=== PATIENT | female | born 1985 | race Caucasian/White ===

== ENCOUNTER 2017-10-15 11:01 | Emergency (ER) | payer MEDICAID, OTHER ==
[~2017-10-15] VITALS: Ht 157.5 cm; Wt 78.0 kg
[2017-10-15 11:39] VITALS: BP 172/113
[2017-10-15 12:24] LABS: CLARITY,URINE CLEAR (Clear); COLOR,URINE YELLOW (Yellow); GLUCOSE, URINE NEGATIVE (Neg); KETONES,URINE 15 mg/dl (Neg); LEUKOCYTE ESTERASE ,URINE TRACE (Neg); NITRITES, URINE NEGATIVE (Neg); OCCULT BLOOD,URINE LARGE (Neg); PROTEIN,URINE TRACE mg/dl (Neg); UA COLLECTION TYPE CLN CATCH MIDSTREAM; URINE HCG NEGATIVE (NEG)
[2017-10-15 12:34] LABS: AMORPHOUS URATES 1+; BACTERIA,URINE FEW /HPF (Neg); MUCUS STRANDS NONE SEEN /LPF (Neg); RBC,URINE 0-2 /HPF (0-2); SQUAMOUS EPITHELIAL CELL,UR MANY /LPF (FEW); WBC,URINE 0-4 /HPF (0-4)
[2017-10-15] MEDS ORDERED: phenazopyridine 100mg tablet PO ONE (12:35)
[2017-10-15] MEDS ORDERED: PHEN-716 PO (12:35)
[2017-10-15] MEDS ORDERED: cephalexin 250mg capsule PO ONE (12:35)
[2017-10-15] MEDS ORDERED: CEPH-572 PO (12:35)
== END 2017-10-15 12:58 | disposition home or self-care (01) ==
LOC: ER 11:02
DX: N39.0 Urinary tract infection, site not specified (principal); J45.909 Unspecified asthma, uncomplicated; Z79.2 Long term (current) use of antibiotics; Z79.899 Other long term (current) drug therapy; Z59.0 Homelessness; Z56.0 Unemployment, unspecified
CPT/HCPCS: 81001; 81025; 99283

== ENCOUNTER 2019-04-07 11:27 | Emergency (ER) | payer MEDICAID ==
[~2019-04-07] VITALS: Ht 160 cm; Wt 93.0 kg
[~2019-04-07 11:27] MED LIST: PHEN-716 PO
[2019-04-07] MEDS ORDERED: ipratropium/albuterol 3ml nebule NEB ONE (12:35)
[2019-04-07] MEDS ORDERED: methylPREDNISolone sod succ 125mg/2ml vial IM ONE (12:35)
[2019-04-07] MEDS ORDERED: albuterol 2.5 MG/3 ML nebule CONTNEB PRN (13:30)
[2019-04-07] MEDS ORDERED: LORazepam 2 mg/ml vial IM ONE (13:40)
[2019-04-07] MEDS ORDERED: PRED10TA23 PO (14:56)
[2019-04-07] MEDS ORDERED: BUDE10.22 INH (14:56)
[2019-04-07] MEDS ORDERED: AZIT-21 PO (14:56)
[2019-04-07 15:03] VITALS: BP 176/97
== END 2019-04-07 15:04 | disposition home or self-care (01) ==
LOC: ER 11:28
DX: J45.998 Other asthma (principal); J20.9 Acute bronchitis, unspecified; Z59.0 Homelessness; Z56.0 Unemployment, unspecified; Z88.6 Allergy status to analgesic agent
CPT/HCPCS: 71046; 94640; 94644; 94760; 96372; 99285; J2060; J2930

== ENCOUNTER → 2021-01-15 | Emergency (ER) | payer MEDICAID ==
[~2021-01-15] VITALS: Ht 160 cm; Wt 88.6 kg
[~2021-01-15] MED LIST changes: +BUDE10.22 INH; +DICL100G30 TOP; +TRAM50TA2 PO; +traMADol 50MG tablet PO ONE
[2021-01-15 20:11] VITALS: BP 192/134
--- NOTE | 2021-01-15 22:50 | NUR ---
pt left prior to dc paperwork, did not want new rx, provider aware
== END | disposition home or self-care (01) ==
LOC: ER 20:04
DX: R68.84 Jaw pain (principal); J45.909 Unspecified asthma, uncomplicated; F17.200 Nicotine dependence, unspecified, uncomplicated; Z72.89 Other problems related to lifestyle; Z56.0 Unemployment, unspecified; Z88.6 Allergy status to analgesic agent; Z88.8 Allergy status to other drugs, medicaments and biological substances; Z79.899 Other long term (current) drug therapy
CPT/HCPCS: 93005; 99283

== ENCOUNTER 2021-07-18 10:09 | Emergency (ER) | payer MEDICAID ==
[~2021-07-18] VITALS: Ht 160 cm; Wt 100.6 kg
[~2021-07-18 10:09] MED LIST changes: -TRAM50TA2 PO; -traMADol 50MG tablet PO ONE
--- NOTE | 2021-07-18 12:27 | NUR ---
PATIENT STATED THAT SHE DID NOT WANT PRESCRIPTION TO BE SENT TO THE PHARMACY FOR PAIN STATING "I DONT NEED IT, I DIDNT COME HERE FOR PAIN MEDICATION".
--- NOTE | 2021-07-18 12:30 | NUR ---
PATIENT LEFT AMA. PROVIDER EDUCATED PATIENT ABOUT THE RISKS OF LEAVING AMA BUT STATED THAT SHE WAS READY TO LEAVE.
[2021-07-18 12:33] VITALS: BP 189/118
== END 2021-07-18 12:36 | disposition home or self-care (01) ==
LOC: ER 10:09
DX: M79.672 Pain in left foot (principal); M79.89 Other specified soft tissue disorders; J45.909 Unspecified asthma, uncomplicated; Z88.8 Allergy status to other drugs, medicaments and biological substances; Z88.6 Allergy status to analgesic agent; Z79.899 Other long term (current) drug therapy
CPT/HCPCS: 73630; 99283

== ENCOUNTER 2021-10-18 15:58 | Emergency (ER) | payer MEDICAID ==
[~2021-10-18] VITALS: Ht 160 cm; Wt 100.5 kg
[2021-10-18 18:31] LABS: CLARITY,URINE CLEAR (Clear); COLOR,URINE YELLOW (Yellow); GLUCOSE, URINE NEGATIVE (Neg); KETONES,URINE NEGATIVE (Neg); LEUKOCYTE ESTERASE ,URINE NEGATIVE (Neg); NITRITES, URINE NEGATIVE (Neg); OCCULT BLOOD,URINE NEGATIVE (Neg); PROTEIN,URINE NEGATIVE (Neg)
[2021-10-18 18:37] LABS: UA COLLECTION TYPE CLN CATCH MIDSTREAM
[2021-10-19 02:35] VITALS: BP_DIAS 110
[2021-10-19] MEDS ORDERED: amLODIPine 5mg tablet PO ONE (02:35)
--- NOTE | 2021-10-19 02:36 | NUR ---
EDGARDO RANGEL AWARE OF ELEVATED BLOOD PRESSURE
[2021-10-19 02:40] VITALS: BP_SYST 194
[2021-10-19] MEDS ORDERED: hydrocortisone 2.5% cream 28.4gm TP ONE (02:40)
[2021-10-19 03:07] LABS: BASOPHILS # (AUTO) 0.1 X10'3 (0-0.2); BASOPHILS % (AUTO) 0.8 % (0-1); EOSINOPHILS # (AUTO) 0.4 X10'3 (0-0.9); EOSINOPHILS % (AUTO) 4.9 % (0-6); HEMATOCRIT 39.7 % (35.0-45.0); HEMOGLOBIN 13.2 g/dl (12.0-16.0); LYMPHOCYTES # (AUTO) 2.3 X10'3 (1.1-4.8); LYMPHOCYTES % (AUTO) 27.4 % (21-51); MEAN CORPUSCULAR HEMOGLOBIN 28.7 PG (27.0-31.0); MEAN CORPUSCULAR HGB CONC 33.3 g/dL (33.0-36.5); MEAN CORPUSCULAR VOLUME 86.3 FL (78-98); MEAN PLATELET VOLUME 8.1 FL (7.4-10.4); MONOCYTES # (AUTO) 0.6 X10'3 (0-0.9); MONOCYTES % (AUTO) 6.6 % (2-12); NEUTROPHILS # (AUTO) 5.1 X10'3 (1.8-7.7); NEUTROPHILS % (AUTO) 60.3 % (42-75); PLATELET COUNT 348 X10'3 (140-440); RED CELL DISTRIBUTION WIDTH 15.5 % (11.5-14.5); WHITE BLOOD COUNT 8.4 X10'3 (4.5-11.0)
[2021-10-19 03:17] LABS: ALANINE AMINOTRANSFERASE 23 U/L (12-78); ALBUMIN 3.7 G/DL (3.4-5.0); ALBUMIN/GLOBULIN RATIO 1.1 (1.1-1.5); ALKALINE PHOSPHATASE 77 IU/L (46-116); ANION GAP 10 (8-16); ASPARTATE AMINO TRANSFERASE 10 U/L (10-37); BILIRUBIN,TOTAL 0.2 MG/DL (0.1-1.0); BLOOD UREA NITROGEN 19 MG/DL (7-18); BUN/CREATININE RATIO 23.8 (6.6-38.0); CALCIUM 9.2 MG/DL (8.5-10.1); CHLORIDE 105 MMOL/L (99-107); GLUCOSE 105 MG/DL (70-104); POTASSIUM 3.6 MMOL/L (3.5-5.1); SODIUM 141 MMOL/L (135-145); TOTAL CARBON DIOXIDE 25.9 MMOL/L (24-32); TOTAL PROTEIN 7.2 G/DL (6.4-8.2); eGFR 81 ML/MIN
== END 2021-10-19 03:39 | disposition home or self-care (01) ==
LOC: ER 15:59
DX: M54.50 Low back pain, unspecified (principal); R07.89 Other chest pain; J45.909 Unspecified asthma, uncomplicated; Z87.440 Personal history of urinary (tract) infections; Z72.89 Other problems related to lifestyle; Z56.0 Unemployment, unspecified; Z88.6 Allergy status to analgesic agent; Z88.8 Allergy status to other drugs, medicaments and biological substances; Z79.899 Other long term (current) drug therapy
CPT/HCPCS: 36415; 80053; 81003; 84484; 85025; 93005; 99283; 99284